=== PATIENT | female | born 1965 | race Caucasian/White ===

== ENCOUNTER 2021-09-25 22:53 | Observation (INO) | payer MEDICARE, MEDICAID ==
[2021-09-25] MEDS ORDERED: Ondansetron 4 MG/2 ML SDV IVPUSH ONE (23:09)
[2021-09-25] MEDS ORDERED: HYDROmorphone 1 MG/ML Syringe IVPUSH ONE (23:09)
[2021-09-25 23:27] LABS: CHLORIDE,CL 97 mmol/L (98-107); SODIUM,NA 136 mmol/L (136-145)
[2021-09-25 23:29] LABS: PTT,PARTIAL THROMBOPLSTIN TIME 20.4 SEC (20.5-30.9)
[2021-09-25] MEDS ORDERED: Sodium Chloride 0.9% 1,000 ML IV SCH (23:45)
[2021-09-26 00:16] LABS: CORONAVIRUS COVID-19 NAA NEGATIVE (NEGATIVE); RESPIRATORY SYNCYTIAL VIR NAA NEGATIVE (NEGATIVE)
[2021-09-26] MEDS ORDERED: Prochlorperazine 10 MG/2 ML SDV IV ONE (00:36)
[2021-09-26] MEDS ORDERED: Iopamidol 612 MG/ML 100 ML Bottle IVPUSH ONE (01:07)
[2021-09-26] MEDS ORDERED: cefTRIAXone 2 GM Vial IVPUSH ONE (01:50)
[2021-09-26] MEDS ORDERED: Lactated Ringers 1,000 ML IV ONE (01:55)
[2021-09-26] MEDS ORDERED: Magnesium Sulfate/Water 2 GM in Premix Bag 1 BAG IV ONE (01:56)
[2021-09-26] MEDS ORDERED: Metoclopramide 10 MG/2 ML SDV IVPUSH ONE (02:22)
[2021-09-26] MEDS ORDERED: Morphine 4 MG/ML Syringe IVPUSH PRN (03:00)
[2021-09-26] MEDS ORDERED: ClonazePAM 0.5 MG Tab PO PRN (03:02)
[2021-09-26] MEDS: Pantoprazole 40 MG Vial IVPUSH SCH ×2 (04:50→15:01)
[2021-09-26] MEDS: hydrOXYzine HCl 25 MG Tab PO SCH ×4 (05:45→23:00)
[2021-09-26] MEDS: Metoclopramide 10 MG/2 ML SDV IVPUSH SCH ×4 (05:51→23:00)
[2021-09-26] MEDS ORDERED: Albuterol 0.083% 2.5 MG/3 ML Neb Soln INH PRN (07:36)
[2021-09-26] MEDS: cloNIDine 0.1 MG Tab PO SCH (07:53)
[2021-09-26] MEDS: lamoTRIgine 100 MG Tab PO SCH ×2 (07:53→20:27)
[2021-09-26] MEDS: metFORMIN 500 MG Tab PO SCH ×2 (07:54→17:31)
[2021-09-26] MEDS: Lactated Ringers 1,000 ML IV SCH ×3 (07:57→21:35)
[2021-09-26] MEDS ORDERED: Nortriptyline 10 MG Cap PO SCH (08:00)
[2021-09-26] MEDS ORDERED: POTASSIUM CHLORIDE 10 MEQ PO SCH (08:00)
[2021-09-26] MEDS ORDERED: Montelukast 10 MG Tab PO SCH (08:00)
[2021-09-26] MEDS ORDERED: Propranolol 60 MG Cap.ER PO SCH (08:00)
[2021-09-26] MEDS: Sodium Chloride 0.9% 10 ML Syringe FLUSH PRN ×3 (11:58→17:31)
[2021-09-26] MEDS ORDERED: ClonazePAM 0.5 MG Tab PO SCH (15:00)
[2021-09-26] MEDS: ClonazePAM 0.5 MG Tab PO PRN (15:06)
[2021-09-26 15:31] LABS: CHLORIDE,CL 103 mmol/L (98-107); SODIUM,NA 139 mmol/L (136-145)
[2021-09-26 15:35] LABS: ANION GAP 10.4 mmol/L (5-15)
[2021-09-26] MEDS: cefTRIAXone 1 GM Vial IVPUSH SCH (20:26)
[2021-09-26] MEDS ORDERED: diphenhydrAMINE 25 MG Cap PO PRN (22:36)
[2021-09-27] MEDS: Pantoprazole 40 MG Vial IVPUSH SCH (03:30)
[2021-09-27] MEDS: Lactated Ringers 1,000 ML IV SCH (03:34)
[2021-09-27] MEDS ORDERED: Acetaminophen 500 MG Tab PO PRN (03:52)
[2021-09-27] MEDS ORDERED: Ibuprofen 200 MG Tab PO PRN (03:53)
[2021-09-27] MEDS: Metoclopramide 10 MG/2 ML SDV IVPUSH SCH (05:55)
[2021-09-27] MEDS: hydrOXYzine HCl 25 MG Tab PO SCH (05:56)
[2021-09-27] MEDS: ClonazePAM 0.5 MG Tab PO PRN (06:12)
[2021-09-27] MEDS: lamoTRIgine 100 MG Tab PO SCH (07:31)
[2021-09-27] MEDS: metFORMIN 500 MG Tab PO SCH (07:31)
[2021-09-27] MEDS: cefTRIAXone 1 GM Vial IVPUSH SCH (07:32)
[2021-09-27] MEDS: cloNIDine 0.1 MG Tab PO SCH (07:32)
== END 2021-09-27 08:15 | disposition home or self-care (01) ==
LOC: VM.ED 22:53 → VM.MS 09-26 02:52
PROVIDERS: ADMIT Physician Assistant; ATTEND Physician Assistant
DX: K56.609 Unspecified intestinal obstruction, unspecified as to partial versus complete obstruction (principal); N39.0 Urinary tract infection, site not specified; Z90.49 Acquired absence of other specified parts of digestive tract; Z98.890 Other specified postprocedural states; Z88.8 Allergy status to other drugs, medicaments and biological substances; Z79.899 Other long term (current) drug therapy; Z79.82 Long term (current) use of aspirin; Z20.822 Contact with and (suspected) exposure to COVID-19
CPT/HCPCS: 0241U; 36415; 74018; 74177; 80053; 81001; 81003; 82150; 82947; 83605; 83690; 83735; 84100; 85025; 85610; 85730; 86140; 87086; 87088; 87186; 96365; 96375; 96376; 99217; 99220; 99225; 99285-25; A9270-GY; C9113; G0378; J0696; J0780; J1170; J2405; J2765; J3475; J3490; J7030; J7120; Q9967